=== PATIENT | male | born 1980 ===

== ENCOUNTER 2016-10-09 08:35 | Emergency (ER) | payer BC, OTHER ==
--- NOTE | 2016-10-09 10:08 | UC ---
Lanie Parks Anna, scribed for [facility],Pradip Lopes MD on 10/09/16 at 0851 . Respiratory Complaint HPI - HPI Summary HPI Summary: MD Note Temperature 100.1. Pulse ox 99. 6/10 discomfort. Occasional alcohol, nonsmoker. Positive H flu on Tamiflu. Previous visit history noncontributory. Nurses Note pt c/o dizziness since thursday, sore throat, chills, vomiting started yesterday. no known fever. pt saw md on thursday and was told he had negative flu and was given tamiflu. pt was called and told to stop tamiflu because it came back neg. In Room Note Patient is a 36 y/o male [place] [facility] [place] with sudden onset of intermittent EMESIS that started yesterday. He experienced nausea and emesis and couldnt keep water down. He slept on and off. He took Nyquil before bed, which did not alleviate the symptoms. He additionally experiences CONGESTION, COUGH, MID-STERNAL PAIN WHEN COUGHING, CRAMPING ABDOMINAL PAIN, SORE THROAT, CHILLS that began three days ago. He has a FEVER upon arrival [place] [facility] He was seen by his doctor three days ago, where he was prescribed Tamiflu for his symptoms. He was given 10 Tamiflu pills and has taken 4-5. Today, he has been able to keep some of his fluids down if he drinks a little bit at a time. His last urination was this morning. His last food was yesterday, and he ate toast and meatballs. Denies CP, sinus tenderness, ear pain, diarrhea. Onset: gradual Palliative/Provocative: emesis Quality: cramping pain Region: abdomen Severity: moderate Time: three days of illness Associated Sx: sore throat, chills, fever, cough, congestion, mid-sternal pain when coughing Home Rx: Nyquil, Tamiful as prescribed. - History of Current Complaint Chief Complaint: UCRespiratory Stated Complaint: VOMITING,HEADACHE,ST Hx Obtained From: Patient - Allergies/Home Medications Allergies/Adverse Reactions: Allergies Allergy/AdvReac Type Severity Reaction Status Date / Time No Known Allergies Allergy Verified 09/09/14 08:40 Home Medications: Home Medications Ibuprofen [Advil] 600 mg PO 10/09/16 [History] Oseltamivir Phosphate [Tamiflu] 75 mg PO 10/09/16 [History] PMH/Surg Hx/FS Hx/Imm Hx Previously Healthy: Yes Endocrine History Of: Denies: Diabetes, Thyroid Disease Cardiovascular History Of: Denies: Cardiac Disorders, Hypertension Respiratory History Of: Denies: COPD, Asthma GI/ History Of: Denies: Ulcer - Surgical History Surgical History: None - Family History Known Family History: Positive: Other - Colon [place] - Social History Occupation: Employed Full-time Lives: With Family Alcohol Use: Occasionally Substance Use Type: None Smoking Status (MU): Never Smoked Tobacco Review of Systems Constitutional: Fever, Chills Skin: Negative Eyes: Negative ENT: Sore Throat, Other - Congestion Respiratory: Cough Cardiovascular: Chest Pain - mid-sternal, when coughing Gastrointestinal: Abdominal Pain, Vomiting, Other - nausea Genitourinary: Negative Motor: Negative Neurovascular: Negative Musculoskeletal: Negative Neurological: Negative Psychological: Negative All Other Systems Reviewed And Are Negative: Yes Physical Exam Triage Information Reviewed: Yes Appearance: Well-Appearing, No Pain Distress, Well-Nourished Vital Signs: Initial Vital Signs Temp 100.1 F 10/09/16 08:39 Pulse 97 10/09/16 08:39 Resp 18 10/09/16 08:39 Pulse Ox 99 10/09/16 08:39 Vital Signs Reviewed: Yes Eyes: Positive: Conjunctiva Clear ENT: Positive: Hearing grossly normal, Pharynx normal, TMs normal, Other: - POSTERIOR LYMPH PATCHES. Negative for erythema or exudate. No sinus tenderness.. Negative: Muffled/hoarse voice Neck: Positive: Supple, No Lymphadenopathy, Other: - Negative meningeal signs Respiratory: Positive: Chest non-tender, Lungs clear, Normal breath sounds, No respiratory distress Cardiovascular: Positive: RRR, No Murmur Abdomen Description: Positive: No Organomegaly, Soft, Other: - DISCOMFORT OVER EPIGASTRIC REGION. Negative Palma's sign.. Negative: Nontender, McBurney's Point Tenderness, Peritoneal Signs Bowel Sounds: Positive: Hyperactive Musculoskeletal: Positive: Strength Intact, Other: - [place]. Neurological: Positive: Alert Psychological: Positive: Age Appropriate Behavior Skin: Negative: rashes UC Diagnostic Evaluation - Laboratory O2 Sat by Pulse Oximetry: 99 Respiratory Course/Dx - Course Course Of Treatment: Discussed at length with the pt a course of treatment and that he should resume Tamiflu and be aware of signs and symptoms of PNA. He should stay hydrated and drink Gatorade and Pedialyte as needed. He should take Benadryl for nausea and discomfort as well as acetaminophen. He voiced agreement and understanding with this plan. I will give him a note to return to work on 10/15/2015. - Differential Dx/Diagnosis Provider Diagnoses: influenza Discharge - Discharge Plan Condition: Stable Disposition: HOME Patient Education Materials: Influenza (ED) Forms: *Work Release Referrals: No Primary Care Phys,NOPCP [Primary Care Provider] - Additional Instructions: WE DISCUSSED: Continue Tamiflu Small amounts of fluid to keep hydrated. Rest Acetaminophen as needed. Benadryl for nausea, vomiting. No work for 5 days and until cough clears. Re check at any time for increased cough, temperature, shortness of breath, chest pain. The documentation as recorded by the Lanie shin Anna accurately reflects the service I personally performed and the decisions made by me, Pradip Richey MD.
== END 2016-10-09 10:12 | disposition home or self-care (01) ==
LOC: UCEAST 08:35
DX: J11.1 Influenza due to unidentified influenza virus with other respiratory manifestations (principal)
CPT/HCPCS: 87502; 87651; 99212; G0463